=== PATIENT | female | born 1970 | race Caucasian/White ===

== ENCOUNTER 2018-08-06 08:52 | Emergency (ER) | payer BC ==
[~2018-08-06] VITALS: Ht 154.9 cm; Wt 50.9 kg
[~2018-08-06 08:52] MED LIST: BIRTH CONTROL PILLS; LISINO; LISINOPRIL10 MG PO
[2018-08-06 08:57] VITALS: BP 108/66; TEMP 98.5
[2018-08-06 10:13] VITALS: PULSE 82
== END 2018-08-06 10:13 | disposition home or self-care (01) ==
LOC: COL.ER 08:52
DX: S92.424A Nondisplaced fracture of distal phalanx of right great toe, initial encounter for closed fracture (principal); I10 Essential (primary) hypertension; W20.8XXA Other cause of strike by thrown, projected or falling object, initial encounter; Y92.009 Unspecified place in unspecified non-institutional (private) residence as the place of occurrence of the external cause